=== PATIENT | male | born 1955 | race Caucasian/White ===

== ENCOUNTER 2022-03-11 14:15 | Emergency (ER) | payer MEDICARE, SELFPAY ==
[2022-03-11] VITALS (7 sets, daily range): BP systolic 96–131; BP diastolic 55–70; PULSE 91–111; RESP 16–22; TEMP 36.5; O2SAT 83–96; BMI 27.1
--- NOTE | 2022-03-11 14:34 | XR_ITS ---
WS: [id number] Portable AP upright chest, 03/11/2022 Clinical Data: dyspnea/cough Comparison: Portable chest, 04/23/2009. Findings: No nodules, masses or effusions are seen. The heart is normal. The pulmonary vascularity is not increased. No pneumonia or pneumothorax is seen. The diaphragms are flattened. The aortic arch a nd descending thoracic aorta show calcification and tortuosity. Monitor leads are on the chest wall. XR/XR chest 1V portable [id number] Impression: Atherosclerosis and hyperinflation.
--- NOTE | 2022-03-11 14:49 | ED_ITS ---
HPI - SOB/Dyspnea General: Chief Complaint: Shortness of Breath/Dyspnea Stated Complaint: low o2 Time Seen by Provider: 03/11/22 14:33 Source: patient Mode of arrival: ambulatory Limitations: no limitations History of Present Illness: HPI Narrative: 66-year-old male with a history of COPD is chronically on oxygen at 3-3 and half liters per minute. Worsening shortness of breath and cough. cough is nonproductive has not had any fever sweats or chills. He was supposed to be seen at his doctor's office today and had increasing shortness of breath and more difficulty maintaining his oxygen sats. When he first arrived at 3 and half liters he was at 83% was able to titrate back down to 3-1/2 L while at rest. He denies any chest pain. MD elicited complaint: shortness of breath and cough Pertinent past history: COPD Onset (ago): day(s) Timing: constant Severity: moderate Exacerbating factors: exertion and coughing Relieving factors: oxygen and rest Known history of: COPD Associated symptoms: Reports chest congestion and cough; Deny abdominal pain, chest pain, diaphoresis, dizziness, extremity pain, fever(s), hemoptysis, lightheadedness, myalgias, nausea, orthopnea, palpitations, paresthesias, polydipsia, polyuria, rash, sense of impending doom, syncope or vomiting Treatment prior to arrival: none Review of Systems Const: Denies: fever(s), chills, body aches, change in appetite, fatigue, malaise or diaphoresis ENMT: Denies: throat pain, ear or mastoid pain, nasal discharge or nasal congestion Card: Denies: chest pain, palpitations, edema, lightheadedness, syncope, dyspnea on exertion or orthopnea Resp: Reports: chest congestion; Denies: dyspnea, productive cough, non-productive cough or hemoptysis GI: Denies: abdominal pain, nausea, vomiting, hematemesis, coffee ground emesis, diarrhea, constipation, bloating, hematochezia or melena : Denies: flank pain, dysuria, urinary frequency or urinary urgency Musc: Denies: extremity pain Skin/Breast: Denies: rash or pruritus Neuro: Denies: dizziness Endo: Denies: polyuria or polydipsia PFS ED PFSH: Medical History (Updated 03/27/22 @ 05:23 by Aly Molina DO) COPD (chronic obstructive pulmonary disease) Hypertension Social History (Updated 03/27/22 @ 05:23 by Aly Molina DO) Smoking and tobacco status: current every day smoker Physical Exam Const: COMMON NORMALS: no acute distress GENERAL APPEARANCE: cooperative and comfortable ORIENTATION/CONSCIOUSNESS: Yes awake, Yes oriented to person, Yes oriented to place and Yes oriented to time HENMT: COMMON NORMALS: normocephalic, atraumatic and hearing grossly normal bilaterally HEAD & SCALP: normocephalic and atraumatic Resp: AUSCULTATION: rhonchi and wheezes Cardio: COMMON NORMALS: regular rhythm RATE: tachycardic RHYTHM: regular rhythm GI: COMMON NORMALS: Soft to palpation and No hepatosplenomegaly present AUSCULTATION: Yes normoactive bowel sounds PALPATION: Yes Soft to palpation, No Tenderness to palpation present (GI), No Guarding due to palpation present (GI) and Yes No hepatosplenomegaly present Extremity: COMMON NORMALS: normal to inspection, capillary refill normal, no clubbing, cyanosis or edema, no calf tenderness and no pedal edema Neuro: SENSORIUM/ORIENTATION: Yes oriented to person, Yes oriented to place and Yes oriented to time Skin: COMMON NORMALS: no rashes or lesions noted GENERAL SKIN EXAM: no rashes or lesions noted Course Vital Signs: Vital signs: Vital Signs Temperature 97.7 F 03/11/22 14:22 Pulse Rate 91 03/11/22 17:09 Respiratory Rate 22 H 03/11/22 17:09 Blood Pressure 127/67 03/11/22 17:09 Pulse Oximetry 94 03/11/22 17:09 Oxygen Delivery Me thod 03/11/22 16:53 Oxygen Flow Rate 3 03/11/22 16:41 MDM - SOB/Dyspnea Medical Decision Making Labs and imaging and EKG reviewed as found on the chart. No evidence of pneumonia patient improved he is at his baseline oxygen use discharged home steroids and aggressive use of Medical Records I reviewed the patient's medical records. Lab Data I reviewed the patient's lab results. : 03/11/22 15:36 03/11/22 15:36 Labs/Radiology: Radiology Impressions Chest X-Ray 03/11/22 14:34 Impression: Atherosclerosis and hyperinflation. Laboratory Results WBC 11.4 10^3/uL (4.0-10.0) H 03/11/22 15:36 RBC 5.90 10^6/uL (4.1-5.3) H 03/11/22 15:36 Hgb 16.7 g/dL (11.7-16.6) H 03/11/22 15:36 Hct 55.0 % (42.0-52.0) H 03/11/22 15:36 MCV 93.2 fl (80-94) 03/11/22 15:36 MCH 28.3 pg (28.0-34.0) 03/11/22 15:36 MCHC 30.4 g/dL (30.0-36.0) 03/11/22 15:36 RDW 14.6 % (12.1-15.1) 03/11/22 15:36 Plt Count 324 10^3/cmm (130-400) 03/11/22 15:36 MPV 9.3 fL (7.4-10.4) 03/11/22 15:36 Neut % (Auto) 78.1 % 03/11/22 15:36 Lymph % (Auto) 12.5 % 03/11/22 15:36 [place] % (Auto) 7.8 % 03/11/22 15:36 Eos % (Auto) 0.4 % 03/11/22 15:36 Baso % (Auto) 0.8 % 03/11/22 15:36 Neut # (Auto) 8.92 10^3/uL (1.8-7.7) H 03/11/22 15:36 Lymph # (Auto) 1.4 10^3/uL (0.8-4.8) 03/11/22 15:36 [place] # (Auto) 0.9 10^3/uL (0.2-0.9) 03/11/22 15:36 Eos # (Auto) 0.1 10^3/uL (0.0-0.8) 03/11/22 15:36 Baso # (Auto) 0.1 10^3/uL (0.0-0.1) 03/11/22 15:36 Nucleated RBC % (auto) 0 % 03/11/22 15:36 Nucleated RBCs # 0.0 /100WBC 03/11/22 15:36 Specimen Type [place] 03/11/22 15:03 Sample Site Radial, left 03/11/22 15:03 ABG pH 7.35 (7.35-7.45) 03/11/22 15:03 ABG pCO2 59.9 mmHg (35-45) H 03/11/22 15:03 ABG pO2 78.5 mmHg (80.0-100.0) L 03/11/22 15:03 ABG HCO3 33.3 mmol/L (22-26) H 03/11/22 15:03 ABG O2 Saturation 96.1 03/11/22 15:03 ABG Base Excess 5.4 mmol/L (-2.0-2.0) H 03/11/22 15:03 Amando Test Pos 03/11/22 15:03 A-a O2 Gradient 74.9 mmHg (5-10) H 03/11/22 15:03 Hematocrit 50.3 % (42-52) 03/11/22 15:03 Hgb O2 Saturation 91.6 % (95-100) L 03/11/22 15:03 Carboxyhemoglobin 4.3 %THgb (0.4-20.1) 03/11/22 15:03 Methemoglobin 0.3 % (0.4-1.5) L 03/11/22 15:03 Total Hemoglobin 16.4 g/dL (14-18) 03/11/22 15:03 Sodium 141.0 mmol/L (131-143) 03/11/22 15:03 Potassium 4.3 mmol/L (3.5-5.0) 03/11/22 15:03 Glucose 114.0 mg/dL (70-115) 03/11/22 15:03 Ionized Calcium 1.2 mmol/L (1.1-1.4) 03/11/22 15:03 O2 Delivery Device Nc 03/11/22 15:03 O2 Liters/Min 3.0 % 03/11/22 15:03 FiO2 32.0 % 03/11/22 15:03 Software Product Manager ID Cak 03/11/22 15:03 Crit Value Read Back Horcu 03/11/22 15:03 Sodium 143 mmol/L (136-145) 03/11/22 15:36 Potassium 4.6 mmol/L (3.5-5.1) 03/11/22 15:36 Chloride 99 mmol/L (98-107) 03/11/22 15:36 Carbon Dioxide 36 mmol/L (22-29) H 03/11/22 15:36 Anion Gap 12.6 (5-19) 03/11/22 15:36 BUN 20 mg/dL (8-23) 03/11/22 15:36 Creatinine 1.2 mg/dL (0.7-1.2) 03/11/22 15:36 GFR Calculation 60.6 mL/min (90-130) L 03/11/22 15:36 Glucose 98 mg/dL (65-115) 03/11/22 15:36 Calculated Osmolality 299 mOsm/kg (285-295) H 03/11/22 15:36 Calcium 9.7 mg/dL (8.5-10.5) 03/11/22 15:36 Total Bilirubin 0.3 mg/dL (0.15-1.2) 03/11/22 15:36 AST 19 U/L (0-40) 03/11/22 15:36 ALT 19 U/L (0-41) 03/11/22 15:36 Alkaline Phosphatase 51 U/L (40-130) 03/11/22 15:36 Total Protein 7.1 g/dL (6.6-8.7) 03/11/22 15:36 Albumin 4.2 g/dL (3.5-5.2) 03/11/22 15:36 Globulin 2.9 g/dL (1.3-4.6) 03/11/22 15:36 Discharge Plan Discharge Patient Disposition: Home Clinical Impression: Acute exacerbation of chronic obstructive airways disease Condition: Stable Prescriptions: New prednisone 20 mg tablet 20 mg PO TID Qty: 15 0RF Rx Instructions: 1 p.o. 3 times daily x3 days, 1 p.o. twice daily x2 days, 1 p.o. daily x2 days albuterol sulfate 90 mcg/actuation HFA aerosol inhaler 2 inh INHALATION Q4H PRN (Reason: shortness of breath or wheezing) Qty: 18 0RF No Action albuterol sulfate 2.5 mg /3 mL (0.083 %) solution for nebulization 2.5 mg inhalation QID PRN (Reason: Shortness Of Breath) trazodone 50 mg tablet 50 mg PO BEDTIME lisinopril 20 mg tablet 20 mg PO DAILY tamsulosin 0.4 mg capsule 0.4 mg PO DAILY hydrochlorothiazide 25 mg tablet 25 mg PO DAILY ipratropium bromide 0.02 % solution 2.5 ml inhalation QID PRN (Reason: Shortness Of Breath) Discharge Orders: Discharge ED (Routine); Ordered 03/11/22 Ordered By: Aly Molina Referrals: Daniel Bernardo [Primary Care Provider] - Discharge Activity: Increase activity as tolerated Patient Instructions: Opioid Safety Activity Restrictions/Additional Instructions: Follow-up with your doctor within the next week return to emergency room if having problems. Coding Level of Care Code ED Rod Buster Helper for Wu Angulo
[2022-03-11 15:14] LABS: ABG PH Result 7.35 (7.35-7.45); Blood Gas Operator Identificat CAK; Ionized Calcium Level - ABG 1.2 mmol/L (1.1-1.4); Potassium Level - ABG 4.3 mmol/L (3.5-5.0)
[2022-03-11 15:16] LABS: Arterial Blood Gas Hematocrit 50.3 % (42-52); Base Excess ABG 5.4 mmol/L (-2.0-2.0); Blood Gas Allen Test Pos; Blood Gas Sample Site Radial, left; HCO3 ABG 33.3 mmol/L (22-26); Oxygen Device NC
[2022-03-11 15:19] LABS: ABG PCO2 59.9 mmHg (35-45); PO2 ABG 78.5 mmHg (80.0-100.0)
[2022-03-11 15:20] LABS: Alveolar-Arterial Oxygen Gradi 74.9 mmHg (5-10); Blood Gas Sample Type CAK
[2022-03-11 15:21] LABS: Carboxyhemoglobin 4.3 %THgb (0.4-20.1); HGB O2 Sat 91.6 % (95-100); Methemoglobin 0.3 % (0.4-1.5); Total Hemoglobin 16.4 g/dL (14-18)
[2022-03-11 15:22] LABS: Oxygen Saturation ABG 96.1
[2022-03-11] MEDS: sodium chloride 0.9% 1,000 ML 999 ML IV (15:32)
[2022-03-11 15:43] LABS: Basophils # 0.1 10^3/uL (0.0-0.1); Basophils % 0.8 %; Eosinophils # 0.1 10^3/uL (0.0-0.8); Eosinophils % 0.4 %; Hemoglobin 16.7 g/dL (11.7-16.6); Lymphocytes # 1.4 10^3/uL (0.8-4.8); Lymphocytes % 12.5 %; Mean Corpuscular HGB Conc 30.4 g/dL (30.0-36.0); Mean Corpuscular Hemoglobin 28.3 pg (28.0-34.0); Mean Corpuscular Volume 93.2 fl (80-94); Mean Platelet Volume 9.3 fL (7.4-10.4); Monocytes # 0.9 10^3/uL (0.2-0.9); Monocytes % 7.8 %; Neutrophils # 8.92 10^3/uL (1.8-7.7); Neutrophils % 78.1 %; Nucleated Red Blood Cells % 0 %; Platelet Count 324 10^3/cmm (130-400); Red Cell Distribution Width 14.6 % (12.1-15.1); White Blood Count 11.4 10^3/uL (4.0-10.0)
[2022-03-11 16:07] LABS: Alanine Aminotransferase 19 U/L (0-41); Albumin Level 4.2 g/dL (3.5-5.2); Alkaline Phosphatase 51 U/L (40-130); Anion Gap 12.6 (5-19); Aspartate Amino Transferase 19 U/L (0-40); Blood Urea Nitrogen 20 mg/dL (8-23); Calcium 9.7 mg/dL (8.5-10.5); Carbon Dioxide 36 mmol/L (22-29); Chloride 99 mmol/L (98-107); Globulin 2.9 g/dL (1.3-4.6); Glomerular Filtration Rate 60.6 mL/min (90-130); Glucose 98 mg/dL (65-115); Osmolality Calculated 299 mOsm/kg (285-295); Potassium 4.6 mmol/L (3.5-5.1); Sodium 143 mmol/L (136-145); Total Bilirubin 0.3 mg/dL (0.15-1.2); Total Protein 7.1 g/dL (6.6-8.7)
[2022-03-11] MEDS: ipratropium-albuterol 3 mL Neb INHALATION (16:40)
== END 2022-03-11 17:10 | disposition home or self-care (01) ==
PROVIDERS: Emergency Provider Family Medicine; PCP Family Medicine
DX: J44.1 Chronic obstructive pulmonary disease with (acute) exacerbation (principal); I10 Essential (primary) hypertension; F17.210 Nicotine dependence, cigarettes, uncomplicated
CPT/HCPCS: 36600; 71045; 80051; 80053; 82330; 82805; 85025; 94640; 96374; 99284; J2930; J7030

== ENCOUNTER → 2022-09-21 13:24 | Outpatient (BNVA) | payer MEDICARE, SELFPAY | PROVIDERS: PCP Family Medicine; Visit Provider Internal Medicine Pulmonary Disease | DX: J44.9 Chronic obstructive pulmonary disease, unspecified (principal); F17.210 Nicotine dependence, cigarettes, uncomplicated; R07.9 Chest pain, unspecified; Z71.6 Tobacco abuse counseling; I10 Essential (primary) hypertension; Z99.81 Dependence on supplemental oxygen | CPT/HCPCS: 99204 ==

== ENCOUNTER 2022-10-19 12:11 | Outpatient (CLI) | payer MEDICARE, SELFPAY ==
--- NOTE | 2022-10-19 12:30 | CT_ITS ---
WS: [id number] LDCT LUNG CANCER SCREENING HISTORY: lung screening TECHNIQUE: Axial imaging performed from the apices to 1 cm below the costophrenic angles. Coronal and sagittal reformats are submitted with axial MIP series. All CT scans at [facility] use at least one of these dose optimization techniques: automated exposure control; mA and/or kV adjustment per patient size (includes targeted exams where dose is matched to clinical indication); or iterativ e reconstruction. DLP: 156.48 mGy.cm DIvol: Mean CTDIvol: 3.40 (mGy) COMPARISON: 04/24/2009 Diagnostic quality: Satisfactory Lungs: Severe centrilobular emphysema. Biapical pleural thickening and scarring. Similar to 2008 with only mild progression. No pulmonary mass or nodules. No endobronchial lesions. Heart: Normal size heart with no pericardial effusion.. Extensive coronary artery calcifications. Other findings: Moderate atherosclerosis thoracic aorta. No adenopathy. No adrenal mass. Exophytic we ll-circumscribed 2.4 cm mass in the superior RIGHT kidney. Indeterminate. CT/CT lung screening [id number] IMPRESSION: LUNG-RADS: 2S-Benign Appearance or Behavior with Significant Findings FOLLOW UP: 12 Month: Continue annual screening with LDCT OTHER FINDINGS (S MODIFIER): Indeterminate exophytic mass superior pole RIGHT k idney. Recommend follow-up renal ultrasound.
[2022-10-19 13:07] VITALS: PULSE 90; RESP 22; O2SAT 94
[2022-10-19] MEDS: albuterol 2.5 mg/3 mL Neb INHALATION (13:07)
[2022-10-19 13:12] VITALS: PULSE 95
== END 2022-10-19 12:12 | disposition home or self-care (01) ==
LOC: RAD 12:22
PROVIDERS: PCP Family Medicine; Visit Provider Internal Medicine Pulmonary Disease
DX: Z12.2 Encounter for screening for malignant neoplasm of respiratory organs (principal); J44.9 Chronic obstructive pulmonary disease, unspecified; F17.210 Nicotine dependence, cigarettes, uncomplicated
CPT/HCPCS: 71271; J7613

== ENCOUNTER 2022-11-09 09:16 | Outpatient (CLI) | payer MEDICARE, SELFPAY ==
--- NOTE | 2022-11-09 09:45 | US_ITS ---
WS: [id number] Bilateral renal ultrasound, 11/09/2022 Clinical Data: abnormal ct Comparison: None. Findings: The right kidney measures 8.4 cm x 5.4 cm x 4.6 cm and the left kidney is 9.3 cm x 5.4 cm x 5.8 cm. T here is a simple cyst on the superior aspect of the right kidney measuring 2.46 x 2.52 x 3.07 cm. The abdominal aorta and inferior vena cava were not imaged The bladder was nonvisualized. US/US renal BI* [id number] Impression: Negative bilateral renal ultrasound with incidental right renal cyst.
== END 2022-11-09 09:17 | disposition home or self-care (01) ==
PROVIDERS: PCP Family Medicine; Visit Provider Internal Medicine Pulmonary Disease
DX: N28.89 Other specified disorders of kidney and ureter (principal)
CPT/HCPCS: 76770

== ENCOUNTER → 2022-11-18 11:07 | Outpatient (BNVA) | payer MEDICARE, SELFPAY | PROVIDERS: PCP Family Medicine; Visit Provider Internal Medicine Pulmonary Disease | DX: J44.9 Chronic obstructive pulmonary disease, unspecified (principal); R06.09 Other forms of dyspnea; Z71.6 Tobacco abuse counseling; R07.89 Other chest pain; F17.200 Nicotine dependence, unspecified, uncomplicated; Z99.81 Dependence on supplemental oxygen | CPT/HCPCS: 99214 ==

== ENCOUNTER 2022-12-24 07:56 | Outpatient (CLI) | payer MEDICARE, SELFPAY ==
[2022-12-24 08:31] VITALS: BMI 28.4
== END 2022-12-24 07:57 | disposition home or self-care (01) ==
PROVIDERS: PCP Family Medicine; Visit Provider Internal Medicine Pulmonary Disease
DX: R06.09 Other forms of dyspnea (principal); R07.9 Chest pain, unspecified; R42 Dizziness and giddiness
CPT/HCPCS: 36415

== ENCOUNTER 2023-03-21 19:40 | Inpatient (IN) | payer MEDICARE, SELFPAY ==
[2023-03-21] VITALS (11 sets, daily range): BP systolic 142–173; BP diastolic 71–87; PULSE 89–112; RESP 14–29; TEMP 36.6; O2SAT 90–100; BMI 30.4
--- NOTE | 2023-03-21 19:49 | ECG_ITS ---
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 Measurements Intervals [place] Rate: 96 P: 89 NC: 184 QRS: -51 QRSD: 137 T: 77 QT: 359 QTc: 455 Interpretive Statements SINUS RHYTHM WITH OCCASIONAL SUPRAVENTRICULAR PREMATURE COMPLEXES INDETERMINATE AXIS RIGHT BUNDLE BRANCH BLOCK [120+ ms QRS DURATION, UPRIGHT V1, 40+ ms S IN I/aVL/V4/V5/V6] No previous ECG available for comparison Electronically Signed On 03-21-2023 21:11:35 CDT by Cassy Atkinson M.D. [email or web address]
--- NOTE | 2023-03-21 19:50 | XRR_ITS ---
PROCEDURE INFORMATION: Exam: XR Chest Exam date and time: 03/21/2023 8:05 PM Age: 67 years old Clinical indication: Other: Copd; Additional info: SOB TECHNIQUE: Imaging protocol: Radiologic exam of the chest. Views: 1 view. COMPARISON: CT lung screening [id number] 10/19/2022 12:41 PM FINDINGS: Lungs: Mild lung hyperexpansion. Mild bronchial thickening. No focal consolidation. Pleural spaces: No pleural effusion. No pneumothorax. Heart/Mediastinum: Normal cardiomediastinal silhouette. Pericardial fat pad. Aortic calcifications. Bones/joints: No acute osseous abnormality. XR/XR chest 1V portable [id number] IMPRESSION: No acute findings.
[2023-03-21 20:10] LABS: ABG PCO2 91.3 mmHg (35-45); ABG PH Result 7.28 (7.35-7.45); Arterial Blood Gas Hematocrit 48.6 % (42-52); Base Excess ABG 11.4 mmol/L (-2.0-2.0); Blood Gas Allen Test Pos; Blood Gas Operator Identificat WALCI; Blood Gas Sample Site Radial, right; Blood Gas Sample Type Arterial; HCO3 ABG 43.1 mmol/L (22-26); HGB O2 Sat 86.4 % (95-100); Methemoglobin 0.5 % (0.4-1.5); Oxygen Device NC; PO2 ABG 57.9 mmHg (80.0-100.0); Total Hemoglobin 15.9 g/dL (14-18)
[2023-03-21 20:33] LABS: Basophils # 0.1 10^3/uL (0.0-0.1); Basophils % 0.9 %; Eosinophils # 0.1 10^3/uL (0.0-0.8); Eosinophils % 1.5 %; Hematocrit 53.5 % (37-53); Lymphocytes % 10.7 %; Mean Corpuscular HGB Conc 29.5 g/dL (30-55); Mean Corpuscular Hemoglobin 28.5 pg (27-33); Mean Corpuscular Volume 96.4 fl (82-101); Mean Platelet Volume 9.4 fL (7.4-10.4); Monocytes # 0.5 10^3/uL (0.2-0.9); Monocytes % 5.5 %; Neutrophils # 7.19 10^3/uL (1.8-7.7); Neutrophils % 80.9 %; Nucleated Red Blood Cells % 0 %; Platelet Count 210 10^3/cmm (157-399); Red Blood Count 5.55 10^6/uL (3.85-5.65); Red Cell Distribution Width 13.3 % (12.1-15.1); White Blood Count 8.88 10^3/uL (3.29-11.43)
[2023-03-21 21:05] LABS: Alanine Aminotransferase 39 U/L (0-41); Albumin Level 4.4 g/dL (3.5-5.2); Alkaline Phosphatase 53 U/L (40-130); Anion Gap 8.8 (5-19); Aspartate Amino Transferase 25 U/L (0-40); Blood Urea Nitrogen 16 mg/dL (8-23); Calcium 9.1 mg/dL (8.5-10.5); Carbon Dioxide 40 mmol/L (22-29); Chloride 96 mmol/L (98-107); Globulin 3.3 g/dL (1.3-4.6); Glomerular Filtration Rate 96.4 mL/min (90-130); Glucose 148 mg/dL (65-115); NT Pro B Type Natriuretic Pept 105 pg/mL (0-125); Osmolality Calculated 296 mOsm/kg (285-295); Potassium 3.8 mmol/L (3.5-5.1); Sodium 141 mmol/L (136-145); Total Bilirubin 0.4 mg/dL (0.15-1.2); Total Protein 7.7 g/dL (6.6-8.7)
[2023-03-21 21:38] LABS: ABG PH Result 7.28 (7.35-7.45); Alveolar-Arterial Oxygen Gradi 11.2 mmHg (5-10); Arterial Blood Gas Hematocrit 48.7 % (42-52); Blood Gas Allen Test Pos; Blood Gas Operator Identificat WALCI; Blood Gas Sample Site Radial, right; Blood Gas Sample Type Arterial; Carboxyhemoglobin 2.9 %THgb (0.4-20.1); HCO3 ABG 42.6 mmol/L (22-26); HGB O2 Sat 84.6 % (95-100); Ionized Calcium Level - ABG 1.2 mmol/L (1.1-1.4); Methemoglobin 0.4 % (0.4-1.5); Oxygen Device BIPAP; Oxygen Saturation ABG 87.5; PO2 ABG 55.9 mmHg (80.0-100.0); Potassium Level - ABG 4.2 mmol/L (3.5-5.0); Total Hemoglobin 15.9 g/dL (14-18)
[2023-03-21 21:39] LABS: ABG PCO2 91.2 mmHg (35-45)
[2023-03-21] MEDS: methylPREDNISolone sod succ 125 MG in water for injection-sterile 2 ML 24 MG IVP (21:42)
--- NOTE | 2023-03-21 21:55 | W.ED.SOB ---
HPI - SOB/Dyspnea General: Chief Complaint: Shortness of Breath/Dyspnea Stated Complaint: COPD exacerbation Time Seen by Provider: 03/21/23 19:46 History of Present Illness: HPI Narrative: 67-year-old male with a history of COPD and hypertension presents emergency room via EMS due to shortness of breath and wheezing. According to EMS patient is oxygen dependent COPD that wears about 4 L at home. Patient was found to be very dyspneic and hypoxic in route. Was given multiple DuoNebs and started on high flow oxygen. Upon present emergency room patient is awake alert without any acute distress. Has any chest pain, coughing up blood or vomiting blood. No fever or chills. No known sick contact or recent foreign travel. Associated symptoms: Deny chest congestion or hemoptysis Review of Systems General: Reports: 10 or more systems reviewed and unremarkable except in HPI and below Resp: Reports: dyspnea, non-productive cough and wheezing; Denies: stridor, pain on inspiration, change in phlegm color, hemoptysis or chest congestion Musc: Reports: extremity swelling and other (lower leg swelling ) [facility] ED PFSH: Medical History COPD (chronic obstructive pulmonary disease) Hypertension Social History Smoking and tobacco status: current every day smoker Physical Exam Const: COMMON NORMALS: no acute distress, average body habitus, patient oriented x3, no limitations, healthy appearing, alert and well nourished HENMT: COMMON NORMALS: normocephalic, atraumatic, hearing grossly normal bilaterally, external ears normal, EAC's normal, TM's normal bilaterally, Normal external nose present, Normal nasal mucous membranes and turbinates present, moist oral mucous membranes, oropharynx normal, dentition normal and gingiva normal HEAD & SCALP: normocephalic and atraumatic NOSE: Normal external nose present and Normal nasal mucous membranes and turbinates present EXTERNAL EAR: Yes external ears normal EXTERNAL AUDITORY CANAL: EAC's normal TYMPANIC MEMBRANE: TM's normal bilaterally Neck/C-Spine: COMMON NORMALS: no JVD Chest: COMMONS NORMALS: normal inspection of the chest, normal palpation of entire chest wall, normal inspection of the breasts and normal palpation of the breasts Breast/axilla inspection: Yes normal inspection of the breasts BREAST/AXILLA PALPATION: Yes normal palpation of the breasts Resp: COMMON NORMALS: No use of accessory muscles EFFORT & INSPECTION: Yes respiratory distress AUSCULTATION: no crackles, no rales, no rhonchi, wheezes and breath sounds absent Cardio: COMMON NORMALS: no JVD, regular rate, regular rhythm, S1 normal heart sound present, S2 normal heart sound present, No gallops present (Cardio), No clicks present (Cardio), No murmurs present (Cardio), No rub (Cardio) and Peripheral pulses 2+ throughout RATE: regular rate RHYTHM: regular rhythm HEART SOUNDS: S1 normal heart sound present and S2 normal heart sound present PERIPHERAL PULSES: Peripheral pulses 2+ throughout GI: COMMON NORMALS: Normal to inspection, nondistended, normoactive bowel sounds present, Soft to palpation, non-tender, No hepatosplenomegaly present, no masses and no bruits PALPATION: Yes Soft to palpation and Yes No hepatosplenomegaly present Extremity: OTHER: Extremity no calf tenderness no major swelling. With some mild erythema diffusely in both legs right worse than left. No visible rash or open wound. Neuro: COMMON NORMALS: patient oriented x3 SENSORIUM/ORIENTATION: Yes alert Skin: COMMON NORMALS: no rashes or lesions noted, no wounds, turgor normal, no jaundice, no petechiae and no mottling GENERAL SKIN EXAM: no rashes or lesions noted and turgor normal Course Reevaluation(s): Reevaluation #1: Patient reassessed and patient still awake alert without any acute distress. ABG reviewed after patient was on BiPAP for about an hour. Patient PCO2 is still very high but patient declined any intubation at this time. Reevaluation #2: Plan is to adjust BiPAP setting we will increase the rate to 218 2 blood of some CO2 and repeat ABG in 45 minutes Consultations: Consultation #1: Discussed patient with hospitalist Dr. Vernon and will plan to admit patient to ICU for further evaluation and treatment Vital Signs: Vital signs: Vital Signs Temperature 97.9 F 03/22/23 04:15 Pulse Rate 82 03/22/23 19:51 Respiratory Rate 22 H 03/22/23 19:50 Blood Pressure 108/71 03/22/23 18:00 Pulse Oximetry 94 03/22/23 19:51 Oxygen Delivery Me thod BiPAP 03/22/23 19:50 Oxygen Flow Rate 40 03/22/23 02:15 Fraction of Inspir ed Oxygen 95 03/22/23 19:51 MDM - SOB/Dyspnea Medical Decision Making Patient made comfortable emergency room had extensive work-up done including CBC, CMP, ABG, troponin and D-dimer. X-ray was done no acute findings. Patient was given steroid and placed on BiPAP. Discussed the lab and x-ray finding with the patient. Discussed patient with the hospitalist. Discussed the current plan with patient as per admission. Differential Diagnosis Likely acute exacerbation of chronic obstructive airways disease, congestive heart failure, community acquired pneumonia, asthma with exacerbation and pulmonary embolism Lab Data 03/22/23 05:20 03/22/23 05:20 Labs/Radiology: Radiology Impressions Chest X-Ray 03/21/23 19:50 IMPRESSION: No acute findings. Chest CTA 03/22/23 11:46 IMPRESSION: 1. No acute findings. 2. Chronic and incidental findings as above, to include emphysema and atherosclerosis with moderate coronary artery calcification. COMMENTS: 1. In the absence of a history or active diagnosis of lung cancer, it is recommended that this patient with emphysema be evaluated for enrollment in a low dose CT lung cancer screening program. 2. Consistent with the [place] [employer]'s Incidental Findings Committee white paper (J Am Ronnie Radiol 2018): Any incidental renal lesion less than 1 cm or classified as too small to characterize, or any incidental cystic renal lesion characterized as simple-appearing, is likely benign. No follow-up imaging is recommended for these lesions per consensus recommendations based on imaging criteria. Laboratory Results WBC 8.88 10^3/uL (3.29-11.43) 03/21/23 20: RBC 5.55 10^6/uL (3.85-5.65) 03/21/23 20: Hgb 15.80 g/dL (11.27-16.99) 03/21/23 20: Hct 53.5 % (37-53) H 03/21/23 20: MCV 96.4 fl (82-101) 03/21/23 20: MCH 28.5 pg (27-33) 03/21/23: MCHC 29.5 g/dL (30-55) L 03/21/23 20: RDW 13.3 % (12.1-15.1) 03/21/23 20: Plt Count 210 10^3/cmm (157-399) 03/21/23 20: MPV 9.4 fL (7.4-10.4) 03/21/23 20: Neut % (Auto) 80.9 % 03/21/23 20: Lymph % (Auto) 10.7 % 03/21/23 20: [place] % (Auto) 5.5 % 03/21/23 20: Eos % (Auto) 1.5 % 03/21/23: Baso % (Auto) 0.9 % 03/21/23: Neut # (Auto) 7.19 10^3/uL (1.8-7.7) 03/21/23: Lymph # (Auto) 1.0 10^3/uL (0.8-4.8) 03/21/23: [place] # (Auto) 0.5 10^3/uL (0.2-0.9) 03/21/23 20: Eos # (Auto) 0.1 10^3/uL (0.0-0.8) 03/21/23: Baso # (Auto) 0.1 10^3/uL (0.0-0.1) 03/21/23: Nucleated RBC % (auto) 0 % 03/21/23: Nucleated RBCs # 0.0 /100WBC 03/21/23: D-Dimer 3.44 ug/mLFEU (0-0.59) H 03/21/23 20: Specimen Type Arterial 03/21/23 22:30 Sample Site Radial, right 03/21/23 22:30 ABG pH 7.31 (7.35-7.45) L 03/21/23 22:30 ABG pCO2 84.2 mmHg (35-45) H* 03/21/23 22:30 ABG pO2 77.9 mmHg (80.0-100.0) L 03/21/23 22:30 ABG HCO3 41.8 mmol/L (22-26) H 03/21/23 22:30 ABG O2 Saturation 96.1 03/21/23 22:30 ABG Base Excess 11.0 mmol/L (-2.0-2.0) H 03/21/23 22:30 Amando Test Pos 03/21/23 22:30 A-a O2 Gradient 14.0 mmHg (5-10) H 03/21/23 22:30 Hematocrit 48.8 % (42-52) 03/21/23 22:30 Hgb O2 Saturation 92.9 % (95-100) L 03/21/23 22:30 Carboxyhemoglobin 2.8 %THgb (0.4-20.1) 03/21/23 22:30 Methemoglobin 0.6 % (0.4-1.5) 03/21/23 22:30 Total Hemoglobin 15.9 g/dL (14-18) 03/21/23 22:30 Sodium 143.0 mmol/L (131-143) 03/21/23 22:30 Potassium 4.2 mmol/L (3.5-5.0) 03/21/23 22:30 Glucose 170.0 mg/dL (70-115) H 03/21/23 22:30 Ionized Calcium 1.2 mmol/L (1.1-1.4) 03/21/23 22:30 O2 Delivery Device Bipap 03/21/23 22:30 O2 Liters/Min 6.0 % 03/21/23 19:59 FiO2 40.0 % 03/21/23 22:30 Bridges And Buildings Supervisor ID [place] 03/21/23 22:30 Sodium 141 mmol/L (136-145) 03/21/23 20:23 Potassium 3.8 mmol/L (3.5-5.1) 03/21/23 20:23 Chloride 96 mmol/L (98-107) L 03/21/23 20:23 Carbon Dioxide 40 mmol/L (22-29) H 03/21/23 20:23 Anion Gap 8.8 (5-19) 03/21/23 20:23 BUN 16 mg/dL (8-23) 03/21/23 20:23 Creatinine 0.8 mg/dL (0.7-1.2) 03/21/23 20:23 GFR Calculation 96.4 mL/min (90-130) 03/21/23 20:23 Glucose 148 mg/dL (65-115) H 03/21/23 20:23 Calculated Osmolality 296 mOsm/kg (285-295) H 03/21/23 20: Calcium 9.1 mg/dL (8.5-10.5) 03/21/23 20:23 Total Bilirubin 0.4 mg/dL (0.15-1.2) 03/21/23 20:23 AST 25 U/L (0-40) 03/21/23 20:23 ALT 39 U/L (0-41) 03/21/23 20:23 Alkaline Phosphatase 53 U/L (40-130) 03/21/23 20:23 NT-Pro-B Natriuret Pep 105 pg/mL (0-125) 03/21/23 20: Total Protein 7.7 g/dL (6.6-8.7) 03/21/23 20: Albumin 4.4 g/dL (3.5-5.2) 03/21/23 20: Globulin 3.3 g/dL (1.3-4.6) 03/21/23 20:23 SARS-CoV-2 Ag (Rapid) negative (Negative) 03/21/23 22:15 XR interpretation done by ED provider, pending radiology final review EKG Data EKG 1: Interpretation: Sinus rhythm with occasional PVC with a rate of 96 there is a right bundle branch block with nonspecific T wave inversion and ST changes. NE interval 184 QT 359 Critical Care Time Critical Care Time: Critical Care Time: Yes Total Critical Care Time: 40 Attestation: Time spent discussing patient with family. Time spent discussing patient with the hospitalist. Time spent reviewing old medical records and medication list. Time spent to reevaluate patient on multiple occasions while in emergency room. Time spent to manage the BiPAP machine. Discharge Plan Discharge Patient Disposition: Admitted As Inpatient Admit Provider: Vandana Vernon Clinical Impression: COPD (chronic obstructive pulmonary disease), Acute exacerbation of chronic obstructive airways disease, Acute respiratory failure with hypercapnia Condition: Stable Coding Level of Care Code ED Data Warehouse Specialist for Wu Angulo
[2023-03-21 22:08] LABS: D Dimer 3.44 ug/mLFEU (0-0.59)
[2023-03-21 22:39] LABS: SARS Covid-2 Antigen negative (Negative)
[2023-03-21 22:42] LABS: ABG PH Result 7.31 (7.35-7.45); Arterial Blood Gas Hematocrit 48.8 % (42-52); Blood Gas Allen Test Pos; Blood Gas Operator Identificat WALCI; Blood Gas Sample Site Radial, right; Blood Gas Sample Type Arterial; Carboxyhemoglobin 2.8 %THgb (0.4-20.1); HCO3 ABG 41.8 mmol/L (22-26); HGB O2 Sat 92.9 % (95-100); Ionized Calcium Level - ABG 1.2 mmol/L (1.1-1.4); Methemoglobin 0.6 % (0.4-1.5); Oxygen Device BIPAP; Oxygen Saturation ABG 96.1; PO2 ABG 77.9 mmHg (80.0-100.0); Potassium Level - ABG 4.2 mmol/L (3.5-5.0); Total Hemoglobin 15.9 g/dL (14-18)
[2023-03-21 22:43] LABS: ABG PCO2 84.2 mmHg (35-45)
[2023-03-22] VITALS (106 sets, daily range): BP systolic 101–169; BP diastolic 53–88; PULSE 61–103; RESP 10–27; TEMP 36.4–36.6; O2SAT 78–97; BMI 30.6; BMI 30.7
--- NOTE | 2023-03-22 00:07 | P.HP_ITS ---
Providers/Chief Complaint Admitting Physician: Vandana Vernon MD Primary Care Provider: Daniel Bernardo Chief Complaint: COPD exacerbation History of Present Illness Scott Barber Jr is a 67 year old male with end-stage COPD typically on home oxygen at 5 L/min, he was supposed to be started on prednisone 5 mg daily, however he has not been taking the steroids. He presents to the emergency room today complaining of worsening shortness of breath over the past 3 days. He de nies any fever chills nausea vomiting hemoptysis or cough worse than usual. He has been expectorating more than usual. Chest x-ray without any signs of consolidation. Rapid COVID antigen is negative. ABG shows evidence of acute on chronic hypoxic hypercapnic respiratory failure. He was started on BiPAP ventilation due to CO2 of 91. He is currently awake alert and oriented. After about being on the BiPAP for 2 hours, CO2 is trending down at 84.2 but patient continues to have evidence of respiratory acidosis. Review of Systems General: Reports: 10 or more systems reviewed and unremarkable except in HPI and below Const: Denies: fever(s), chills or body aches Eyes: Denies: change in vision, blurry vision or photophobia ENMT: Reports: hoarseness; Denies: throat pain, enlarged tonsils, odynophagia or nasal congestion Card: Denies: chest pain, palpitations, irregular heart rhythm, edema, swelling of feet/ankles, lightheadedness, pre-syncope, dyspnea on exertion or orthopnea Resp: Denies: dyspnea, productive cough, non-productive cough, wheezing, stridor, pain on inspiration, change in phlegm color, hemoptysis or chest congestion GI: Denies: abdominal pain, nausea, vomiting, hematemesis, coffee ground emesis, dysphagia, heartburn, diarrhea, constipation, GI cramping, change in stool character, hematochezia or melena : Denies: flank pain, dysuria, urinary frequency, urinary urgency, urinary hesitancy or hematuria Musc: Denies: neck pain, back pain, extremity pain, joint swelling, joint warmth or deformity Neuro: Denies: headache(s), numbness in extremities, weakness in extremities, sensory changes, difficulty walking, frequent falls, dizziness, vertigo, behavioral changes, Slurred speech present or seizure-like activity Psych: Denies: anxiety, depression, suicidal ideation or homicidal ideation Endo: Denies: polyuria, polydipsia, tired all the time, cold intolerance or hot flashes Joselo/Lymph: Denies: easy bruising or easy bleeding Medications/Allergies Home Medications Medication Instructions Recorded Confirmed Last Taken Type albuterol sulfate 2.5 mg/3 mL 2.5 mg inhalation QID PRN 03/11/22 11/18/22 Unknown History (0.083 %) solution for nebulization Shortness Of Breath albuterol sulfate 90 mcg/actuation 2 inh inhalation Q4H PRN shortness 03/11/22 11/18/22 Unknown Rx aerosol inhaler of breath or wheezing #18 grams hydrochlorothiazide 25 mg tablet 25 mg PO DAILY 03/11/22 11/18/22 03/11/22 History ipratropium bromide 0.02 % 2.5 ml inhalation QID PRN 03/11/22 11/18/22 Unknown History solution for inhalation Shortness Of Breath lisinopril 20 mg tablet 20 mg PO DAILY 03/11/22 03/11/22 03/11/22 History tamsulosin 0.4 mg capsule 0.4 mg PO DAILY 03/11/22 09/21/22 03/11/22 History trazodone 50 mg tablet 50 mg PO BEDTIME 03/11/22 11/18/22 03/10/22 History budesonide 0.5 mg/2 mL suspension 0.5 mg inhalation DAILY 09/21/22 11/18/22 Unknown History for nebulization budesonide 0.5 mg/2 mL suspension 0.5 mg (2 mL) inhalation BID COPD 11/18/22 11/18/22 Unknown Rx for nebulization #60 mL formoterol fumarate 20 mcg/2 mL 2 ml inhalation BID COPD #120 mL 11/18/22 11/18/22 Unknown Rx solution for nebulization (Perforomist) prednisone 5 mg tablet 5 mg PO DAILY #30 tabs 11/18/22 11/18/22 Unknown Rx revefenacin 175 mcg/3 mL solution 175 mcg (3 mL) inhalation DAILY 11/18/22 11/18/22 Unknown Rx for nebulization (Yupelri) COPD #90 mL arformoterol 15 mcg/2 mL solution 2 ml inhalation Q12H #60 mL 11/26/22 Unknown Rx for nebulization (Brovana) Allergies Allergy/AdvReac Type Severity Reaction Status Date / Time codeine Allergy Unknown Unknown Verified 09/21/22 14:05 PFSH Acute PFSH: Medical History COPD (chronic obstructive pulmonary disease) Hypertension Social History Smoking and tobacco status: current every day smoker Vitals/I&O/Wt Last Vital Signs Temp 97.8 F 03/21/23 19:41 Pulse 90 03/21/23 22:50 Resp 14 03/21/23 21:45 BP 142/71 03/21/23 21:45 Pulse Ox 95 03/21/23 22:50 O2 Del Method BiPAP 03/21/23 21:45 O2 Flow Rate 6 03/21/23 19:55 FiO2 40 03/21/23 22:50 03/21/23 03/21/23 03/22/23 14:59 22:59 06:59 Intake Total 2 / 2 Balance 2 / 2 Weight last 48 hrs Weight 98.883 kg Physical Exam Narrative: General: Tachypneic in conversation, unable to talk in complete sentences HEENT: PERRLA, pupils bilaterally equal and reactive, pallors not present Chest: Poor air entry bilaterally on auscultation. No gross wheezing. CVS: S1-S2 regular, no murmurs, no tachycardia, no gallops, no rubs Abdomen: Soft, nontender, no organomegaly, bowel sounds present Neuro: No focal deficits, no facial deformity, AO x3, power 5/5 in all limbs Extremities: Changes of poor peripheral perfusion bilateral feet, likely to be chronic. However over the last 2 weeks he has been noticed during blistering over the right lower extremity. On exam right lower extremity is more enlarged compared to the left side. Data 03/21/23 20:23 03/21/23 20:23 ABG Interpretation 1: 03/21/23 03/21/23 03/21/23 19:59 21:27 22:30 ABG pH 7.28 L 7.28 L 7.31 L ABG pCO2 91.3 H* 91.2 H* 84.2 H* ABG pO2 57.9 L 55.9 L 77.9 L ABG HCO3 43.1 H 42.6 H 41.8 H ABG O2 Saturation 87.5 96.1 ABG Base Excess 11.4 H 11.0 H 11.0 H Other data: Ordering Provider/Ordering MD: Fredo Flores MD Date of Service: 03/21/23 Procedure(s): XR chest 1V portable [id number] Accession Number(s): [id number] Report Number: [id number] PROCEDURE INFORMATION: Exam: XR Chest Exam date and time: 03/21/2023 8:05 PM Age: 67 years old Clinical indication: Other: Copd; Additional info: SOB TECHNIQUE: Imaging protocol: Radiologic exam of the chest. Views: 1 view. COMPARISON: CT lung screening [id number] 10/19/2022 12:41 PM FINDINGS: Lungs: Mild lung hyperexpansion. Mild bronchial thickening. No focal consolidation. Pleural spaces: No pleural effusion. No pneumothorax. Heart/Mediastinum: Normal cardiomediastinal silhouette.? Pericardial fat pad.? Aortic calcifications. Bones/joints: No acute osseous abnormality. XR/XR chest 1V portable [id number] IMPRESSION: No acute findings. ? A&P Assessment and plan (1) Acute and chronic respiratory failure with hypercapnia: Acute on chronic hypoxic hypercapnic respiratory failure related to COPD exacerb ation. ABG currently 7.28/91.3/57.9/43.1 upon admission with evidence of acute respiratory acidosis.. It appears patient's baseline CO2 is closer to 60. He has been on BiPAP for about 2 hours with CO2 improving only marginally from 91-84. Patient is otherwise alert and awake, he states that he wishes to avoid intubation for as much as possible. We will continue BiPAP ventilation as long as patient remains awake and alert and follows commands. Check ABG in another 2 hours after being on Bipap DuoNeb every 6 hours scheduled inhalation Budesonide 0.5 mg twice daily scheduled inhalation Dexamethasone 6 mg IV every 12 hours Chest x-ray without any gross consolidation. Rapid COVID antigen negative Check D-dimer (2) Acute exacerbation of chronic obstructive airways disease: As above (3) Encounter for smoking cessation counseling: Patient continues to smoke actively. Nicotine patch while admitted (4) Right leg swelling: Right lower extremity swelling the patient has noticed over the past 2 weeks with occasional blistering. Does not appear to be cellulitis per appearance, no fever, no leukocytosis Patient has poor mobility at baseline, will check lower extremity Doppler to evaluate for DVT. Plan DVT prophylaxis: Lovenox 40 mg daily Full code for now however would like to avoid intubation as much as possible. Explained the risk of prolonged intubation, ventilator dependence given his advanced COPD. Attestations Medical Necessity Statement*: Admit to ICU in view of acute on chronic hypercapnic respiratory failure, evidence of respiratory acidosis, hypercapnia needing BiPAP ventilation, slow progression in spite of BiPAP ventilation. Critical Care Time: The high probability of a clinically significant, sudden or life threatening deterioration of the patient's [respiratory] system(s) required my full and direct attention, intervention and personal management. The critical care time is as shown. This time is in addition to time spent performing any reported procedures but includes the following: [x] Data and vital sign review and interpretation [x] Patient assessment, examination and intervention [x] Documentation [x] Medication orders and management Critical Care Time (min): 40 Coding Level of Care Code Acute Code for Chg Fwd High MDM includes number and complexity of problems actively addressed during encounter, amount and/or complexity of data reviewed/ordered and described risk of complication, morbidity or mortality of management as documented Diagnoses Acute and chronic respiratory failure with hypercapnia J96.22 Acute exacerbation of chronic obstructive airways disease J44.1 Encounter for smoking cessation counseling Z71.6 Right leg swelling M79.89
[2023-03-22] MEDS: dexamethasone 10 mg/mL INJ 6 MG IVP (00:12)
--- NOTE | 2023-03-22 00:29 | USCV_ITS ---
PepitoScott love Age: 67 Gender: M : 1955 Exam Date: 03/22/2023 01:10 Ordering Phys: Vandana Vernon MD Technologist: MARION Exam Location: [facility] [place] Indication: RIGHT leg swelling x 2 months with erythema. No history of DVT per patient. COPD exacerbation HISTORY: RIGHT leg swelling x 2 months with erythema. No history of DVT per patient. COPD exacerbation. Paatient on BIPAP in ICU-6. PROCEDURES: Venous duplex imaging was performed in bilateral lower extremities. The following venous structures were evaluated: common femoral vein, profunda vein, proximal portion of the greater saphenous vein, superficial femoral vein, and the popliteal vein. In addition, the posterior tibial veins were evaluated. FINDINGS: Normal 2-D Doppler and augmentation and compressibility throughout the lower extremity venous structures. Additional imaging through the proximal calf veins also reveals no thrombus. Limited evaluation of the greater saphenous vein is patent with no thrombus. CONCLUSIONS No DVT bilateral lower extremities. Dr. Dominique Adhikari DO (Electronically Signed) Final Date: 22 March 2023 08:50 S
[2023-03-22] MEDS: tamsulosin 0.4 mg Capsule PO ×2 (01:01→08:35)
[2023-03-22] MEDS: enoxaparin 40 mg/0.4 mL Syringe SUBCUT (01:01)
--- NOTE | 2023-03-22 02:22 | PC.NURSE ---
Urine output Upon admission, patient stated he had been unable to urinate for 24 hours. Bladder scan performed revealing [address] Vernon notified; order received to perform a straight cath. Straight cath performed and 350 ml urine returned.
[2023-03-22] MEDS: ipratropium-albuterol 3 mL Neb INHALATION ×4 (02:24→19:49)
[2023-03-22 02:37] LABS: ABG PH Result 7.28 (7.35-7.45); Arterial Blood Gas Hematocrit 48.2 % (42-52); Blood Gas Allen Test Pos; Blood Gas Sample Site Radial, right; Blood Gas Sample Type Arterial; HCO3 ABG 41.2 mmol/L (22-26); Oxygen Device BIPAP; PO2 ABG 81.6 mmHg (80.0-100.0)
[2023-03-22 02:39] LABS: ABG PCO2 87.3 mmHg (35-45)
[2023-03-22 05:54] LABS: Basophils % 0.2 %; Hematocrit 50.7 % (37-53); Lymphocytes # 0.3 10^3/uL (0.8-4.8); Lymphocytes % 3.8 %; Mean Corpuscular HGB Conc 29.4 g/dL (30-55); Mean Corpuscular Hemoglobin 28.4 pg (27-33); Mean Corpuscular Volume 96.8 fl (82-101); Mean Platelet Volume 9.8 fL (7.4-10.4); Monocytes % 0.5 %; Neutrophils # 8.08 10^3/uL (1.8-7.7); Nucleated Red Blood Cells % 0 %; Platelet Count 260 10^3/cmm (157-399); Red Blood Count 5.24 10^6/uL (3.85-5.65); Red Cell Distribution Width 13.4 % (12.1-15.1)
[2023-03-22 06:19] LABS: Alanine Aminotransferase 35 U/L (0-41); Albumin Level 4.1 g/dL (3.5-5.2); Alkaline Phosphatase 49 U/L (40-130); Anion Gap 10.7 (5-19); Aspartate Amino Transferase 20 U/L (0-40); Blood Urea Nitrogen 19 mg/dL (8-23); Calcium 8.9 mg/dL (8.5-10.5); Carbon Dioxide 38 mmol/L (22-29); Chloride 98 mmol/L (98-107); Glomerular Filtration Rate 112.5 mL/min (90-130); Glucose 188 mg/dL (65-115); Osmolality Calculated 301 mOsm/kg (285-295); Potassium 4.7 mmol/L (3.5-5.1); Sodium 142 mmol/L (136-145); Total Bilirubin 0.4 mg/dL (0.15-1.2); Total Protein 7.1 g/dL (6.6-8.7)
[2023-03-22] MEDS: budesonide 0.5 mg/2 mL Neb INHALATION ×2 (07:30→19:49)
[2023-03-22] MEDS: nicotine 21 mg Patch 1 PATCH TRANSDERMA (08:30)
[2023-03-22] MEDS: lisinopril 20 mg Tablet PO (08:35)
[2023-03-22] MEDS: pantoprazole DR 40 mg Tablet PO (08:37)
--- NOTE | 2023-03-22 09:56 | PC.PHAR ---
pt states he takes care of his own medications-pt states he never got the brovana solution,perforomist,or yupelri-pt states he hasnt taken lisinopril 20mg daily or hctz 25mg daily for a year-pt states he takes his prednisone 5mg prn or when he remembers to take it-pt states also takes his flomax 0.4mg qd prn and trazodone 50mg hs prn-notes are made in the pharmacy comments
--- NOTE | 2023-03-22 11:44 | P.MISC_ITS ---
Miscellaneous Note Note: Patient is stating that he has been smoking and uses 4 L of oxygen He does have Dr. Courtney's follow-up appointment he has nebulizers at home He is not motivated to quit smoking at all Lives alone Does not have any medical DPOA Full code No active wheezing Awake and alert Lower extremity swelling noted Psoriasis related plaques? 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
--- NOTE | 2023-03-22 11:46 | CTR_ITS ---
PROCEDURE INFORMATION: Exam: CTA Chest With Contrast Exam date and time: 03/22/2023 4:42 PM Age: 67 years old Clinical indication: Shortness of breath; Additional info: Hypoxia TECHNIQUE: Imaging protocol: Computed tomographic angiography of the chest with contrast. Exam focused on the arteries. 3D rendering (Not supervised by radiologist): MIP and/or 3D reconstructed images were created by the technologist. Radiation optimization: All CT scans at this facility use at least one of these dose optimization techniques: automated exposure control; mA and/or kV adjustment per patient size (includes targeted exams where dose is matched to clinical indication); or iterative reconstruction. Contrast material: OMNI 350; Contrast volume: 100 ml; Contrast route: INTRAVENOUS (IV); REPORTING DATA: Count of CT and Cardiac NM exams in prior 12 months: This patient has received [address] and 0 known cardiac nuclear medicine studies in the 12 months prior to the current study. COMPARISON: 1. US renal BI* [id number] 11/09/2022 9:[address] lung screening [id number] 10/19/2022 12:41 PM 3. CR (CHEST, ) 03/21/2023 8:05 PM RADIATION DOSE METRICS: Total DLP (mGy-cm): 546 FINDINGS: Pulmonary arteries: Normal. No pulmonary emboli. Aorta: Heavy systemic atherosclerotic calcification without aortic aneurysm. No aortic dissection. Trachea: Mild lower right tracheal secretions. Lungs: Moderate to severe upper lung predominant emphysematous change. Stable biapical pleural-parenchymal scarring. Mild dependent atelectasis. No consolidation. No mass. Pleural spaces: No pleural effusion or pneumothorax. Heart: Unremarkable. No cardiomegaly. No pericardial effusion. Coronary arteries: Moderate coronary artery calcification. Lymph nodes: Unremarkable. No enlarged lymph nodes. Gallbladder and bile ducts: Prior cholecystectomy. Kidneys and ureters: Stable renal cysts and subcentimeter hypodensities too small to characterize. Bones/joints: No acute fracture. Old fracture deformity of the lateral right 9th rib. Mild degenerative changes along the spine and shoulders. Soft tissues: Unremarkable. CT/CT angio chest PE protcl [id number] IMPRESSION: 1. No acute findings. 2. Chronic and incidental findings as above, to include emphysema and atherosclerosis with moderate coronary artery calcification. COMMENTS: 1. In the absence of a history or active diagnosis of lung cancer, it is recommended that this patient with emphysema be evaluated for enrollment in a low dose CT lung cancer screening program. 2. Consistent with the [employer]'s Incidental Findings Committee white paper (J Am Ronnie Radiol 2018): Any incidental renal lesion less than 1 cm or classified as too small to characterize, or any incidental cystic renal lesion characterized as simple-appearing, is likely benign. No follow-up imaging is recommended for these lesions per consensus recommendations based on imaging criteria.
[2023-03-22] MEDS: iohexol 350 mg/mL 500 mL Btl (per mL) IV (16:58)
[2023-03-22 18:52] LABS: Add Urine Microscopic? YES; Bilirubin Urine 1+ (Negative); Blood Urine 3+ (Negative); Glucose Urine UA 1+ (Normal); Leukocyte Esterase Urine 1+ (Negative); Nitrate Urine Positive (Negative); Protein Urine 2+ (Negative); Urine Appearance Cloudy (CLEAR); pH Urine 5 (5-7)
[2023-03-22 18:53] LABS: Ketones Urine 1+ (Negative); Urobilinogen Urine 1 mg/dL (Negative)
[2023-03-22 18:54] LABS: Amorphous Sediment Urine 2+ /hpf; Bacteria Urine 1+ /hpf; RBC Urine >100 /hpf (0-2); Squamous Epithelial Cell Urine 0-4 /hpf (0-5); Urine Color Brown (Yellow)
[2023-03-22 18:55] LABS: Add Urine Culture? Yes
[2023-03-23] VITALS (93 sets, daily range): BP systolic 96–174; BP diastolic 56–96; PULSE 69–112; RESP 13–28; TEMP 36.4–36.9; O2SAT 81–97
[2023-03-23] MEDS: enoxaparin 40 mg/0.4 mL Syringe SUBCUT (01:00)
[2023-03-23] MEDS: ipratropium-albuterol 3 mL Neb INHALATION ×4 (01:37→20:01)
[2023-03-23 05:06] LABS: ABG PCO2 75.7 mmHg (35-45); ABG PH Result 7.34 (7.35-7.45); Arterial Blood Gas Hematocrit 45.7 % (42-52); Base Excess ABG 11.3 mmol/L (-2.0-2.0); Blood Gas Allen Test Pos; Blood Gas Sample Type Arterial; HCO3 ABG 40.8 mmol/L (22-26); PO2 ABG 57.2 mmHg (80.0-100.0)
[2023-03-23 05:08] LABS: Blood Gas Operator Identificat JB; Oxygen Device NC
--- NOTE | 2023-03-23 05:20 | PC.NURSE ---
Patient has remained on bipap through majority of the night. Switched to nasal cannula at approximately 0400. Patient tolerating well on 4-5L nasal cannula. Patient has been cooperative throughout shift, AOx4. Switched patient back to Bipap @0540 per patient's request.
[2023-03-23 05:45] LABS: Anion Gap 7.3 (5-19); Blood Urea Nitrogen 33 mg/dL (8-23); Calcium 9.3 mg/dL (8.5-10.5); Carbon Dioxide 40 mmol/L (22-29); Chloride 98 mmol/L (98-107); Glomerular Filtration Rate 96.4 mL/min (90-130); Glucose 117 mg/dL (65-115); Osmolality Calculated 300 mOsm/kg (285-295); Potassium 4.3 mmol/L (3.5-5.1); Sodium 141 mmol/L (136-145)
[2023-03-23] MEDS: budesonide 0.5 mg/2 mL Neb INHALATION ×2 (08:20→20:01)
[2023-03-23] MEDS: nicotine 21 mg Patch 1 PATCH TRANSDERMA (08:29)
[2023-03-23] MEDS: tamsulosin 0.4 mg Capsule PO (08:29)
[2023-03-23] MEDS: lisinopril 20 mg Tablet PO (08:29)
[2023-03-23] MEDS: pantoprazole DR 40 mg Tablet PO (08:29)
[2023-03-23] MEDS: cefTRIAXone 1,000 MG in sodium chloride 0.9% (plus) 50 ML 100 MG IV (08:29)
--- NOTE | 2023-03-23 10:28 | PM.PN ---
Subjective Subjective: Patient this morning is not endorsing new complaint however stating that he choked on food and is still catching up on his breath however he is saturating 94% on 4 L nasal cannula Use BiPAP overnight PCO2 improved to 75 It is of utmost importance to have BiPAP at home to prevent readmissions, will request PT today Patient has been started on ceftriaxone for UTI hematuria Considering significant hypercapnia, labored breathing decreased airflow he would definitely benefit from BiPAP at home Vitals/I&O/Wt Last Vital Signs Temp 98.4 F 03/23/23 08:30 Pulse 98 03/23/23 10:15 Resp 25 H 03/23/23 10:15 BP 156/87 03/23/23 07:30 Pulse Ox 94 03/23/23 10:15 O2 Del Method BiPAP 03/23/23 08:20 O2 Flow Rate 4 03/23/23 04:45 FiO2 35 03/23/23 08:22 03/22/23 03/23/23 03/23/23 22:59 06:59 14:59 Intake Total 240 / 480 0 / 480 290 / 290 Balance 240 / 480 0 / 480 290 / 290 Weight last 48 hrs Weight 101.605 kg Weight 100 kg Weight 99.5 kg Weight 98.883 kg Physical Exam Narrative: Patient is still catching up on his throat with recent choking event Currently on 4 L Saturating well GCS 15 Pleasant cooperative Lower extremity swelling slightly better Poon catheter hematuria Urinary Catheter Management: Poon: Cath Placed During This Visit: yes Reason for Continuing Indwelling Catheter: Accurate Measurement of Urinary Output in Critically Ill Patients Urinary Catheter Date of Insertion: 03/22/23 Urinary Catheter Time of Insertion: 13:13 Data 03/22/23 05:20 03/23/23 04:54 A&P Assessment and plan (1) Right leg swelling: (2) Acute and chronic respiratory failure with hypercapnia: (3) Acute exacerbation of chronic obstructive airways disease: (4) Acute respiratory failure with hypercapnia: (5) Encounter for smoking cessation counseling: (6) Exertional dyspnea: (7) COPD (chronic obstructive pulmonary disease): (8) UTI (urinary tract infection): Plan Acute COPD exacerbation Active smoker Patient will definitely benefit from BiPAP at home to prevent readmissions and preventing intubation in future Patient is full code for now however stating that he does not want to be hooked up admission forever in case he is not able to make decision his brother will be contacted We will request overnight pulse ox For now I think he would definitely benefit from rehab/SNF patient does have blue blockers appearance Minimal airflow with severe COPD Likely end-stage, in case of further worsening I would recommend palliative care however patient is not ready to discuss palliative care at this point I will rediscuss goals of care Requested venous Doppler CTA chest rule out thromboembolic phenomenon which was unremarkable UTI: Continue ceftriaxone we will follow-up with urine culture Hematuria related to traumatic Poon catheter placement Rediscuss goals of care Patient is full code for now Stating that in case he is not able to make decision his brother should be contacted but at the same time he is stating that he has never discussed that with his brother either He is not willing to quit smoking at this time Cardiac diet Start peripheral edema azithromycin for end-stage COPD We will request PT most likely he will need rehab Attestations Medical Necessity Statement*: Continue med management Diagnoses Right leg swelling M79.89 Acute and chronic respiratory failure with hypercapnia J96.22 Acute exacerbation of chronic obstructive airways disease J44.1 Acute respiratory failure with hypercapnia J96.02 Encounter for smoking cessation counseling Z71.6 Exertional dyspnea R06.09 COPD (chronic obstructive pulmonary disease) J44.9 UTI (urinary tract infection) N39.0
[2023-03-23] MEDS: morphine 4 mg/mL SDV 1 mL 2 MG IVP (11:21)
[2023-03-23] MEDS: roflumilast 500 mcg Tablet PO (11:22)
--- NOTE | 2023-03-23 23:46 | PC.NURSE ---
Patient is requesting pneumonia and covid vaccinations.
[2023-03-24] VITALS (42 sets, daily range): BP systolic 95–158; BP diastolic 61–96; PULSE 68–103; RESP 12–27; TEMP 36.4–36.9; O2SAT 91–99
[2023-03-24] MEDS: enoxaparin 40 mg/0.4 mL Syringe SUBCUT (00:04)
[2023-03-24] MEDS: nicotine 21 mg Patch 1 PATCH TRANSDERMA ×2 (02:17→08:28)
[2023-03-24] MEDS: ipratropium-albuterol 3 mL Neb INHALATION ×4 (02:43→20:21)
[2023-03-24 05:33] LABS: ABG PCO2 67.1 mmHg (35-45); ABG PH Result 7.39 (7.35-7.45); PO2 ABG 62.5 mmHg (80.0-100.0)
[2023-03-24 05:34] LABS: BIPAP 18/6; Base Excess ABG 12.2 mmol/L (-2.0-2.0); Blood Gas Drawn By BISJE; Blood Gas Operator Identificat JB; HCO3 ABG 40.8 mmol/L (22-26); Oxygen Device BIPAP
[2023-03-24 05:38] LABS: Arterial Blood Gas Hematocrit 48.6 % (42-52)
[2023-03-24 05:40] LABS: Blood Gas Sample Site RIGHT RADIAL
[2023-03-24 05:41] LABS: Basophils # 0.1 10^3/uL (0.0-0.1); Basophils % 0.6 %; Eosinophils # 0.2 10^3/uL (0.0-0.8); Hematocrit 48.9 % (37-53); Lymphocytes # 1.7 10^3/uL (0.8-4.8); Lymphocytes % 15.9 %; Mean Corpuscular HGB Conc 29.7 g/dL (30-55); Mean Corpuscular Hemoglobin 28.6 pg (27-33); Mean Corpuscular Volume 96.4 fl (82-101); Monocytes # 1.2 10^3/uL (0.2-0.9); Monocytes % 11.5 %; Neutrophils # 7.49 10^3/uL (1.8-7.7); Neutrophils % 69.7 %; Nucleated Red Blood Cells % 0 %; Platelet Count 271 10^3/cmm (157-399); Red Blood Count 5.07 10^6/uL (3.85-5.65); White Blood Count 10.73 10^3/uL (3.29-11.43)
[2023-03-24 06:13] LABS: Anion Gap 8.9 (5-19); Blood Urea Nitrogen 24 mg/dL (8-23); Carbon Dioxide 40 mmol/L (22-29); Chloride 96 mmol/L (98-107); Glomerular Filtration Rate 112.5 mL/min (90-130); Glucose 103 mg/dL (65-115); Osmolality Calculated 296 mOsm/kg (285-295); Potassium 3.9 mmol/L (3.5-5.1); Sodium 141 mmol/L (136-145)
[2023-03-24] MEDS: budesonide 0.5 mg/2 mL Neb INHALATION ×3 (07:39→20:22)
[2023-03-24] MEDS: pantoprazole DR 40 mg Tablet PO (08:28)
[2023-03-24] MEDS: roflumilast 500 mcg Tablet PO (08:28)
[2023-03-24] MEDS: lisinopril 20 mg Tablet PO (08:28)
[2023-03-24] MEDS: cefTRIAXone 1,000 MG in sodium chloride 0.9% (plus) 50 ML 100 MG IV (08:28)
[2023-03-24] MEDS: tamsulosin 0.4 mg Capsule PO (08:28)
[2023-03-24] MEDS: azithromycin 250 mg Tablet PO (08:28)
--- NOTE | 2023-03-24 08:43 | PC.SOCIAL ---
Pg 2 IMM Explained to pt Pg 2 IMM. No questions voiced. Provided pt a copy. Initialed, dated, & timed a copy & placed in chart.
--- NOTE | 2023-03-24 10:10 | PM.PN ---
Subjective Subjective: Patient has given me consent to talk to his brother today Patient is on BiPAP Patient is stating that his sleep was not of quality he has been waking up frequently He stayed compliant with BiPAP overnight No fever or leukocytosis We can use calamine lotion for his lower extremities No active blistering Seems to have erythema nodosum ABG showed improved pH and PCO2 Vitals/I&O/Wt Last Vital Signs Temp 98.5 F 03/24/23 04:00 Pulse 84 03/24/23 07:41 Resp 17 03/24/23 07:39 BP 135/66 03/24/23 06:00 Pulse Ox 95 03/24/23 07:41 O2 Del Method BiPAP 03/24/23 07:39 O2 Flow Rate 5 03/24/23 06:00 FiO2 35 03/24/23 07:41 03/23/23 03/24/23 03/24/23 22:59 06:59 14:59 Output Total 625 / 625 325 / 950 Balance -625 / -335 -325 / -660 Weight last 48 hrs Weight 101.151 kg Weight 101.605 kg Physical Exam Narrative: Patient is on BiPAP Lower extremity psoriasis related plaques No active blistering Has erythema nodosum No signs of vascular compromise Diminished airflow Currently on BiPAP Awake and alert GCS 15 S1, S2 Urinary Catheter Management: Poon: Cath Placed During This Visit: yes Reason for Continuing Indwelling Catheter: Accurate Measurement of Urinary Output in Critically Ill Patients Urinary Catheter Date of Insertion: 03/22/23 Urinary Catheter Time of Insertion: 13:13 Data 03/24/23 05:15 03/24/23 05:15 A&P Assessment and plan (1) UTI (urinary tract infection): (2) Right leg swelling: (3) Acute and chronic respiratory failure with hypercapnia: (4) Acute exacerbation of chronic obstructive airways disease: (5) Acute respiratory failure with hypercapnia: (6) Encounter for smoking cessation counseling: (7) Hypertension: (8) COPD (chronic obstructive pulmonary disease): Plan UTI: No fever leukocytosis I will switch IV antibiotics to p.o. regimen COPD exacerbation: Compensated for now on BiPAP Patient will need BiPAP at home Currently we are pursuing half-way placement because patient gets short of breath easily on minimal exertion Psoriasis plaque, will request arterial duplex to rule out arterial ischemia He can be transferred out of ICU to [facility] Continue BiPAP We will request echo to know his EF and right ventricle EF as well High D-dimer however no signs of PE or DVT Full code Cardiac low-sodium diet Poon catheter was placed for urinary retention, dysuria/hematuria showed improvement DVT prophylaxis on board I have started patient on azithromycin and Roflumilast for his advanced age COPD Attestations Medical Necessity Statement*: AWaiting placement Diagnoses UTI (urinary tract infection) N39.0 Right leg swelling M79.89 Acute and chronic respiratory failure with hypercapnia J96.22 Acute exacerbation of chronic obstructive airways disease J44.1 Acute respiratory failure with hypercapnia J96.02 Encounter for smoking cessation counseling Z71.6 Hypertension I10 COPD (chronic obstructive pulmonary disease) J44.9
[2023-03-24 10:42] LABS: Blood Gas Allen Test Pos; Blood Gas Sample Site Radial, right; Blood Gas Sample Type Arterial
--- NOTE | 2023-03-24 11:00 | USR_ITS ---
PROCEDURE INFORMATION: Exam: US Duplex Bilateral Lower Extremity Arteries Exam date and time: 03/24/2023 3:58 PM Age: 67 years old Clinical indication: Condition or disease; Other: Hyperemia TECHNIQUE: Imaging protocol: Real-time ultrasound scan of the arteries of the bilateral lower extremities with 2-D tejeda scale, color Doppler flow and spectral waveform analysis. Images documented and saved. COMPARISON: US renal BI* [id number] 11/09/2022 9:44 AM FINDINGS: Right external iliac artery: Right iliac artery: Elevated velocities in the mid right external iliac artery, consistent hemodynamically significant stenosis. Monophasic waveform. Right common femoral artery: No occlusion or significant stenosis. Monophasic waveform. Right superficial femoral artery: No occlusion or significant stenosis. Monophasic waveform. Right popliteal artery: No occlusion or significant stenosis. Monophasic waveform. Right calf/foot arteries: No occlusion or significant stenosis in the visualized arteries. Biphasic waveforms. Dorsalis pedis artery is patent. Left external iliac artery: No occlusion or significant stenosis. Normal waveform. Left common femoral artery: No occlusion or significant stenosis. Normal waveform. Left superficial femoral artery: No occlusion or significant stenosis. Normal waveform. Left popliteal artery: No occlusion or significant stenosis. Normal waveform. Left calf/foot arteries: No occlusion or significant stenosis in the visualized arteries. Normal waveforms. Dorsalis pedis artery is patent. US/[place] [id number] IMPRESSION: 1. There is a hemodynamically significant stenosis demonstrated in the mid right iliac artery. No additional right-sided arterial stenoses are demonstrated. 2. No hemodynamically significant stenosis demonstrated in the left lower extremity.
--- NOTE | 2023-03-24 15:01 | USCV_ITS ---
RussellScott vee Age: 67 Gender: M : 1955 Exam Date: 03/24/2023 16:26 Ordering Phys: Yennifer Dietrich MD Technologist: Marvin Rodríguez Exam Location: [facility] [place] Indication: copd BP: / HR: Rhythm: Sinus Technical Quality: Very technically difficult study MEASUREMENTS (Male / Female) Normal Values FINDINGS Left Ventricle Technically very limited study technically limited study because of poor ultrasonic windows. Only subcostal views were obtained. Left-ventricular possibly of normal size with a slightly diminished ejection fraction. Right Ventricle I do nuclear patient be mildly dilated. There is thickening of the right ventricular free wall. Right Atrium Could not be visualized well Left Atrium Possibly of normal size Mitral Valve No gross abnormalities noted Aortic Valve Could not be visualized Tricuspid Valve Could not be visualized Pulmonic Valve Could not be visualized Pericardium No pericardial effusion. Aorta Aorta not well visualized. IVC Inferior vena cava not visualized. CONCLUSIONS Possibly normal LV size with a slightly diminished ejection fraction. Mildly dilated right ventricle with possibly normal ejection fraction and features of right ureteral hypertrophy. There is no pericardial effusion. Technically difficult study because of the poor ultrasonic window. Only subcostal views were obtained Dr Chin Tubbs MD [facility] (Electronically Signed) Final Date: 24 March 2023 18:11 S
[2023-03-25] VITALS (11 sets, daily range): BP systolic 117–134; BP diastolic 69–72; PULSE 69–92; RESP 14–28; TEMP 36.6–36.7; O2SAT 91–96
[2023-03-25] MEDS: enoxaparin 40 mg/0.4 mL Syringe SUBCUT (00:18)
[2023-03-25] MEDS: ipratropium-albuterol 3 mL Neb INHALATION ×2 (01:42→08:51)
[2023-03-25] MEDS: morphine 4 mg/mL SDV 1 mL 2 MG IVP ×2 (02:04→07:34)
[2023-03-25] MEDS: levoFLOXacin 750 mg Tablet PO (06:15)
[2023-03-25] MEDS: budesonide 0.5 mg/2 mL Neb INHALATION (08:52)
[2023-03-25] MEDS: roflumilast 500 mcg Tablet PO (09:02)
[2023-03-25] MEDS: tamsulosin 0.4 mg Capsule PO (09:03)
[2023-03-25] MEDS: nicotine 21 mg Patch 1 PATCH TRANSDERMA (09:03)
[2023-03-25] MEDS: lisinopril 20 mg Tablet PO (09:03)
[2023-03-25] MEDS: pantoprazole DR 40 mg Tablet PO (09:03)
[2023-03-25] MEDS: azithromycin 250 mg Tablet PO (09:28)
--- NOTE | 2023-03-25 09:52 | P.DS_ITS ---
Discharge Providers Date of Admission: 03/21/23 23:37 Date of Discharge: March 25, 2023 Attending Provider at Admission: Vandana Vernon MD Attending Provider at Discharge: Yennifer Dietrich MD Primary Care Provider: Daniel Bernardo Diagnoses at Discharge Discharge Diagnosis (1) UTI (urinary tract infection): Status: Acute (2) Right leg swelling: Status: Acute (3) Acute and chronic respiratory failure with hypercapnia: Status: Acute (4) Acute exacerbation of chronic obstructive airways disease: Status: Acute (5) Acute respiratory failure with hypercapnia: Status: Acute (6) Encounter for smoking cessation counseling: Status: Acute (7) Hypertension: Status: Acute (8) COPD (chronic obstructive pulmonary disease): Status: Acute Reason for Visit Reason for Visit: COPD exacerbation Hospital Course Hospital Course 67-year male who present to the hospital with chief complaint of worsening of shortness of breath patient follows up with Dr. Bragg, has advanced COPD, active smoker, lives alone, his brother checked on him and sent to the hospital for worsening of his shortness of breath with pursed lip breathing. No fever or chest pain. Patient also had lower extremity swelling related to right-sided failure, he was diuresed, Poon catheter was placed for urinary retention he was diagnosed with UTI and required antibiotics. He was kept on BiPAP for hypoxic hypercapnic respiratory failure, we requested BiPAP approval. Patient is getting BiPAP dependent, has pursed lip breathing, gets short of breath with conversational dyspnea, pH is compensated with compliance with BiPAP. Echo showed near normal EF with poor ultrasonic windows. Patient has lower extremity discoloration erythema with dusky appearance without any signs of ischemic u lcers, arterial duplex was requested which showed monophasic right external iliac vessel stenosis with biphasic flow in the vessels below his knee, patient is not able to lay flat considering his worsening of COPD no active pain at rest, decision was made not to pursue any intervention at this point and treat peripheral vascular disease with medical management, this was discussed with the patient in detail along his brother. At the time of discharge he will get azithromycin for anti-inflammatory effect along Roflumilast, DuoNeb inhaler, LABA LAMA ICS combination and BiPAP At baseline patient is using 3 to 4 L, now he is getting BiPAP dependent, he has very poor airflow in his lung, high D-dimer however CT rule out PE, no signs of DVT This patient is at risk of worsening of his COPD in future, [facility], patient has change his CODE STATUS to DNR/DNI, this was discussed with his brother as well, we have arranged hospice referral which could be used if he gets worse at the penitentiary. Physical Exam Narrative: Pursed lip breathing Blue Blue alert GCS 15 Nonfocal neuro exam Able to make decision for himself S1, S2 Currently on 4 L Conversational dyspnea apparent off BiPAP Abdomen soft Lower extremity with dusky appearance and erythema without any signs of ischemic ulcer, no pain at rest Urinary Catheter Management: Poon: Cath Placed During This Visit: yes, but has since been removed by the nurse Reason for Continuing Indwelling Catheter: Accurate Measurement of Urinary Output in Critically Ill Patients Urinary Catheter Date of Insertion: 03/22/23 Urinary Catheter Time of Insertion: 13:13 Date Urinary Catheter Removed: 03/24/23 Time Urinary Catheter Discontinued: 17:00 Discharge Data Studies Completed and Pending Completed Studies During Hospitalization Category Date Time Status CTA PE [CT angio chest PE protcl [id number]] Routine Cat Scan 03/22/23 11:46 Completed XR chest 1V portable [id number] Stat Exams 03/21/23 19:50 [place] [id number] Routine Ultrasound 03/24/23 11:00 [place] [id number] Routine Ultrasound 03/22/23 00:29 Completed CV. echo complete* [id number] Routine Ultrasound 03/24/23 15:01 Completed Pending at discharge Category Date Time Status SARS Covid-2 Antigen Stat Lab 03/25/23 08:25 Uncollected Urine Culture Routine Lab 03/22/23 18:07 Results Radiology Impressions Chest X-Ray 03/21/23 19:50 IMPRESSION: No acute findings. Chest CTA 03/22/23 11:46 IMPRESSION: 1. No acute findings. 2. Chronic and incidental findings as above, to include emphysema and atherosclerosis with moderate coronary artery calcification. COMMENTS: 1. In the absence of a history or active diagnosis of lung cancer, it is recommended that this patient with emphysema be evaluated for enrollment in a low dose CT lung cancer screening program. 2. Consistent with the [employer] [place] [employer]'s Incidental Findings Committee white paper (J Am Ronnie Radiol 2018): Any incidental renal lesion less than 1 cm or classified as too small to characterize, or any incidental cystic renal lesion characterized as simple-appearing, is likely benign. No follow-up imaging is recommended for these lesions per consensus recommendations based on imaging criteria. Duplex Scan Lower Extremity Artery 03/24/23 11:00 IMPRESSION: 1. There is a hemodynamically significant stenosis demonstrated in the mid right iliac artery. No additional right-sided arterial stenoses are demonstrated. 2. No hemodynamically significant stenosis demonstrated in the left lower extremity. Laboratory Results WBC 10.73 10^3/uL (3.29-11.43) 03/24/23 05:15 RBC 5.07 10^6/uL (3.85-5.65) 03/24/23 05:15 Hgb 14.50 g/dL (11.27-16.99) 03/24/23 05:15 Hct 48.9 % (37-53) 03/24/23 05:15 MCV 96.4 fl (82-101) 03/24/23 05:15 MCH 28.6 pg (27-33) 03/24/23 05:15 MCHC 29.7 g/dL (30-55) L 03/24/23 05:15 RDW 14.0 % (12.1-15.1) 03/24/23 05:15 Plt Count 271 10^3/cmm (157-399) 03/24/23 05:15 MPV 10.0 fL (7.4-10.4) 03/24/23 05:15 Neut % (Auto) 69.7 % 03/24/23 05:15 Lymph % (Auto) 15.9 % 03/24/23 05:15 Ness % (Auto) 11.5 % 03/24/23 05:15 Eos % (Auto) 2.0 % 03/24/23 05:15 Baso % (Auto) 0.6 % 03/24/23 05:15 Neut # (Auto) 7.49 10^3/uL (1.8-7.7) 03/24/23 05:15 Lymph # (Auto) 1.7 10^3/uL (0.8-4.8) 03/24/23 05:15 Ness # (Auto) 1.2 10^3/uL (0.2-0.9) H 03/24/23 05:15 Eos # (Auto) 0.2 10^3/uL (0.0-0.8) 03/24/23 05:15 Baso # (Auto) 0.1 10^3/uL (0.0-0.1) 03/24/23 05:15 Nucleated RBC % (auto) 0 % 03/24/23 05:15 Nucleated RBCs # 0.0 /100WBC 03/24/23 05:15 D-Dimer 3.44 ug/mLFEU (0-0.59) H 03/21/23 20:23 Specimen Type Arterial 03/24/23 04:20 Sample Site Radial, right 03/24/23 04:20 ABG pH 7.39 (7.35-7.45) 03/24/23 04:20 ABG pCO2 67.1 mmHg (35-45) H* 03/24/23 04:20 ABG pO2 62.5 mmHg (80.0-100.0) L 03/24/23 04:20 ABG HCO3 40.8 mmol/L (22-26) H 03/24/23 04:20 ABG O2 Saturation 96.1 03/21/23 22:30 ABG Base Excess 12.2 mmol/L (-2.0-2.0) H 03/24/23 04:20 Amando Test Pos 03/24/23 04:20 A-a O2 Gradient 14.0 mmHg (5-10) H 03/21/23 22:30 Hematocrit 48.6 % (42-52) 03/24/23 04:20 Hgb O2 Saturation 92.9 % (95-100) L 03/21/23 22:30 Carboxyhemoglobin 2.8 %THgb (0.4-20.1) 03/21/23 22:30 Methemoglobin 0.6 % (0.4-1.5) 03/21/23 22:30 Total Hemoglobin 15.9 g/dL (14-18) 03/21/23 22:30 Sodium 143.0 mmol/L (131-143) 03/21/23 22:30 Potassium 4.2 mmol/L (3.5-5.0) 03/21/23 22:30 Glucose 170.0 mg/dL (70-115) H 03/21/23 22:30 Ionized Calcium 1.2 mmol/L (1.1-1.4) 03/21/23 22:30 O2 Delivery Device Bipap 03/24/23 04:20 O2 Liters/Min 4.0 % 03/23/23 04:53 FiO2 35.0 % 03/24/23 04:20 Mode BiPAP 19/1203/24/23 04:20 Specimen Drawn By Ryann 03/24/23 04:20 Car Worker Helper ID Isra 03/24/23 04:20 Blood Gas Notified Time 0538 03/24/23 04:20 Sodium 141 mmol/L (136-145) 03/24/23 05:15 Potassium 3.9 mmol/L (3.5-5.1) 03/24/23 05:15 Chloride 96 mmol/L (98-107) L 03/24/23 05:15 Carbon Dioxide 40 mmol/L (22-29) H 03/24/23 05:15 Anion Gap 8.9 (5-19) 03/24/23 05:15 BUN 24 mg/dL (8-23) H 03/24/23 05:15 Creatinine 0.7 mg/dL (0.7-1.2) 03/24/23 05:15 GFR Calculation 112.5 mL/min (90-130) 03/24/23 05:15 Glucose 103 mg/dL (65-115) 03/24/23 05:15 Calculated Osmolality 296 mOsm/kg (285-295) H 03/24/23 05:15 Calcium 9.0 mg/dL (8.5-10.5) 03/24/23 05:15 Total Bilirubin 0.4 mg/dL (0.15-1.2) 03/22/23 05:20 AST 20 U/L (0-40) 03/22/23 05:20 ALT 35 U/L (0-41) 03/22/23 05:20 Alkaline Phosphatase 49 U/L (40-130) 03/22/23 05:20 NT-Pro-B Natriuret Pep 105 pg/mL (0-125) 03/21/23 20:23 Total Protein 7.1 g/dL (6.6-8.7) 03/22/23 05:20 Albumin 4.1 g/dL (3.5-5.2) 03/22/23 05:20 Globulin 3.0 g/dL (1.3-4.6) 03/22/23 05:20 Urine Color Brown (Yellow) A 03/22/23 18:07 Urine Appearance Cloudy (CLEAR) 03/22/23 18:07 Urine pH 5 (5-7) 03/22/23 18:07 Ur Specific [facility] 1.020 (1.005-1.030) 03/22/23 18:07 Urine Protein 2+ (Negative) H 03/22/23 18:07 Urine Glucose (UA) 1+ (Normal) H 03/22/23 18:07 Urine Ketones 1+ (Negative) H 03/22/23 18:07 Urine Blood 3+ (Negative) H 03/22/23 18:07 Urine Nitrate Positive (Negative) H 03/22/23 18:07 Urine Bilirubin 1+ (Negative) H 03/22/23 18:07 Urine Urobilinogen 1 mg/dL (Negative) H 03/22/23 18:07 Ur Leukocyte Esterase 1+ (Negative) H 03/22/23 18:07 Urine RBC >100 /hpf (0-2) H 03/22/23 18:07 Urine WBC 5-10 /hpf (0-5) H 03/22/23 18:07 Ur Squamous Epith Cells 0-4 /hpf (0-5) H 03/22/23 18:07 Amorphous Sediment 2+ /hpf 03/22/23 18:07 Urine Bacteria 1+ /hpf (NONE) H 03/22/23 18:07 SARS-CoV-2 Ag (Rapid) negative (Negative) 03/21/23 22:15 Vitals Last Vital Signs Temp 98.0 F 03/25/23 08:00 Pulse 90 03/25/23 09:27 Resp 18 03/25/23 08:00 BP 134/72 03/25/23 08:00 Pulse Ox 92 03/25/23 09:27 O2 Del Method BiPAP 03/25/23 08:00 O2 Flow Rate 4 03/25/23 01:43 FiO2 35 03/25/23 09:27 Discharge Plan Discharge Patient Disposition: Xfer SNF Condition: Stable Prescriptions: New Xanax 0.5 mg tablet 0.5 mg PO TID PRN (Reason: anxiety) Qty: 20 0RF lisinopril 20 mg Tablet 20 mg PO DAILY Qty: 30 2RF levofloxacin 750 mg Tablet 750 mg PO DAILY@0600 Qty: 3 0RF atorvastatin 40 mg tablet 40 mg PO DAILY Qty: 90 2RF potassium chloride 10 mEq tablet extended release 10 meq PO DAILY Qty: 30 0RF azithromycin 250 mg Tablet 250 mg PO EVERY OTHER DAY Qty: 30 0RF roflumilast 500 mcg Tablet 500 mcg PO DAILY Qty: 90 0RF Trelegy Ellipta 200-62.5-25 mcg blister with device 1 inh inhalation DAILY Qty: 60 3RF aspirin 81 mg tablet,delayed release (DR/EC) 81 mg PO DAILY Qty: 60 1RF furosemide [Lasix] 40 mg tablet 40 mg PO QAM Qty: 60 0RF Continued budesonide 0.5 mg/2 mL suspension for nebulization 0.5 mg inhalation BID Qty: 60 6RF trazodone 50 mg tablet 50 mg PO BEDTIME PRN (Reason: Sleep) albuterol sulfate 90 mcg/actuation HFA aerosol inhaler 2 inh INHALATION Q4H PRN (Reason: shortness of breath or wheezing) Qty: 18 0RF tamsulosin 0.4 mg capsule 0.4 mg PO DAILY PRN (Reason: unknown) Qty: 30 0RF albuterol sulfate 2.5 mg /3 mL (0.083 %) solution for nebulization See Rx Instructions .ROUTE .COMPLEX Qty: 90 3RF Rx Instructions: USE ONE vial BY MOUTH via nebulizer FOUR TIMES DAILY AND EVERY TWO hours as needed for SHORTNESS OF BREATH ipratropium bromide 0.02 % solution See Rx Instructions .ROUTE .COMPLEX Qty: 150 2RF Rx Instructions: USE ONE vial BY MOUTH via nebulizer FOUR TIMES DAILY with albuterol Discontinued Tylenol Ex Str Rapid Release 500 mg Tablet 1,000 mg PO Q6H PRN (Reason: Pain) Advil 200 mg Tablet 400 mg PO Q6H PRN (Reason: Pain) prednisone 5 mg tablet 5 mg PO DAILY PRN (Reason: flare ups) Discharge Orders: Discharge Order (Routine); Ordered 03/25/23 Ordered By: Yennifer Dietrich Other Ambulatory Orders: DME: BIPAP (Order) Location: None Selected Ordered By: Yennifer Dietrich Referrals: [facility] [Outside] Daniel Bernardo [Primary Care Provider] - Patient Instructions: Opioid Safety Discharge Attestations Time Spent in Discharge Care*: greater than 30 min Quality Metrics Clinical Quality Measures [ No reported AMI, CVA or VTE this stay] Coding Level of Care Code Acute Code for Chg Fwd Diagnoses UTI (urinary tract infection) N39.0 Right leg swelling M79.89 Acute and chronic respiratory failure with hypercapnia J96.22 Acute exacerbation of chronic obstructive airways disease J44.1 Acute respiratory failure with hypercapnia J96.02 Encounter for smoking cessation counseling Z71.6 Hypertension I10 COPD (chronic obstructive pulmonary disease) J44.9
[2023-03-25 11:34] LABS: SARS Covid-2 Antigen negative (Negative)
--- NOTE | 2023-03-25 11:40 | PC.NURSE ---
1140 - Report called to Jacqueline at [facility].
--- NOTE | 2023-03-25 12:33 | PC.NURSE ---
IV removed from left hand.Pt belongings gathered. Calls Kamran Varner for ambulance ride to [facility]. Notified brother that pt is going today. Brother states that he will meet him in [place].
--- NOTE | 2023-03-25 12:49 | PC.NURSE ---
Pt to DC with Kamran Varner. Discharge packet given to transport.
== END 2023-03-25 12:51 | disposition skilled nursing facility (03) | DRG 189 ==
LOC: ER 22:31 → ICU 22:38 → MEDSURG 03-24 13:56
PROVIDERS: Admitting Provider Student in an Organized Health Care Education/Training Program; Emergency Provider Family Medicine; PCP Family Medicine; Visit Provider Internal Medicine
DX: J96.22 Acute and chronic respiratory failure with hypercapnia (principal); N39.0 Urinary tract infection, site not specified; J44.1 Chronic obstructive pulmonary disease with (acute) exacerbation; J96.21 Acute and chronic respiratory failure with hypoxia; F17.200 Nicotine dependence, unspecified, uncomplicated; R33.9 Retention of urine, unspecified; I73.9 Peripheral vascular disease, unspecified; Z66 Do not resuscitate; Z79.891 Long term (current) use of opiate analgesic; Z79.51 Long term (current) use of inhaled steroids; Z99.81 Dependence on supplemental oxygen; I10 Essential (primary) hypertension; R31.9 Hematuria, unspecified; L40.0 Psoriasis vulgaris
CPT/HCPCS: 36415; 36600; 51702; 51798; 71045; 71275; 80048; 80051; 80053; 81001; 82330; 82803; 82805; 83880; 85025; 85378; 87086; 87426; 93005; 93306; 93925; 93970; 94640; 94660; 94669; 96372; 96374; 96376; 97162; 97530; 99291; J0696; J1100; J1650; J2270; J2930; J7626; Q0144; Q9967